=== PATIENT | male | born 1980 | race Caucasian/White ===

== ENCOUNTER 2017-06-20 13:07 | Emergency (ER) | payer MEDICAID ==
[2017-06-20 13:21] VITALS: RESP 18
--- NOTE | 2017-06-20 14:55 | EDPHY ---
H & P Stated Complaint: "bad cold", aches all over Time Seen by Provider: 06/20/17 14:55 HPI/ROS: CHIEF COMPLAINT: Fever, achiness, sore throat. HISTORY OF PRESENT ILLNESS: This patient is a pleasant 37 year old male complaining of fever, sore throat, and achy muscles onset yesterday. He went to work today, began to feel miserable and presents for evaluation. He is currently staying at a half-way. 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 He endorses a slight cough and feels congested (he has had a past nasal fracture and feels his nasal breathing is generally not good). He endorses nausea. Has had chest pain and shortness of breath when he has tried to stop using drugs in the past. This time, he is committing to discontinuing his IV drug use. He does not feel that his recent symptoms are related to drug withdrawal. He has not used any Tylenol, Motrin, or other over the counter remedies due to difficulty in obtaining these medications. He has not measured his temperature, but feels subjectively hot and has had chills. He denies vomiting, diarrhea, abdominal pain, urinary complaints, or other associated symptoms. REVIEW OF SYSTEMS: A ten point review of systems was performed and is negative with the exception of the items mentioned in the HPI. Past medical history: Alcoholism, IV drug use, polysubstance abuse. Past surgical history: Noncontributory Family history: Noncontributory Social history: Nonsmoker. Endorses alcohol use. Former IV drug use. Recently moved to [place] from [place], and is living at the homeless half-way. Works at the [employer]. General Appearance: Alert. Vital signs reviewed. Eyes: Pupils equal and round, no conjunctival injection, no discharge. Anicteric. ENT, Mouth: Mucous membranes are moist, mild oropharyngeal erythema, no edema. Neck: Mild anterior cervical lymphadenopathy, supple. Respiratory: Lungs are clear to auscultation; no wheezes, rales, or rhonchi. Cardiovascular: Regular rate and rhythm; no murmur, rub, or gallop. Gastrointestinal: Abdomen is soft and nontender, no masses or organomegaly, bowel sounds normal. Skin: Warm and dry, no rashes on exposed skin, normal color. Back: Nontender to palpation over the thoracolumbar spine. No CVAT. Extremities: No lower extremity edema, no calf tenderness or swelling. Neurological: Alert and oriented. Moving all four extremities easily and equally. Psychiatric: Normal affect. - Personal History Current Tetanus Diphtheria and Acellular Pertussis (TDAP): Unsure - Medical/Surgical History Hx Alcoholism: Yes Other PMH: IV drug abuse (clean x 2 wks). homeless - Social History Smoking Status: Former smoker Constitutional: Initial Vital Signs Temperature (C) 36.9 C 06/20/17 13:16 Heart Rate 82 06/20/17 13:16 Respiratory Rate 18 06/20/17 13:16 Blood Pressure 106/59 L 06/20/17 13:16 O2 Sat (%) 95 06/20/17 13:16 O2 Delivery Mode Room Air Allergies/Adverse Reactions: No Known Allergies Allergy (Unverified 06/20/17 13:21) Home Medications: Medication Instructions Recorded NK [No Known Home Meds] 06/20/17 Medical Decision Making ED Course/Re-evaluation: 37 year old male presents with subjective fever, achiness, congestion, and sore throat. Physical exam reveals mild pharyngeal erythema and scattered lymphadenopathy. Plan for flu swab. Plan to administer 1000mg PO Tylenol for relief of symptoms. We discussed resources for his continued rehabilitation from drug use. He will receive contact information for and [facility]. I also will give contact information for local HIV testing centers (at his request). Influenza test is negative. I think that he has a viral syndrome, with symptoms possibly exacerbated by opiate withdrawal. He is familiar with the symptoms of withdrawal. Reassessed patient and discussed these results. Plan to discharge home in good condition. He will follow up as discussed above. Return precautions discussed. He is comfortable with this plan. Differential Diagnosis: I considered a differential diagnosis including but not limited to opiate withdrawal, pneumonia, urinary tract infection, viral syndrome, and influenza. - Data Points Medications Given: Discontinued Medications Acetaminophen (Tylenol) 1,000 mg PO EDNOW ONE Stop: 06/20/17 15:09 Last Admin: 06/20/17 15:30 Dose: 1,000 mg Departure - Departure Disposition: Home, Routine, Self-Care Clinical Impression: Viral syndrome Condition: Good Instructions: Viral Syndrome (ED) Additional Instructions: 1. Follow up with a primary care provider for continued evaluation. We [facility] - they have walk-in appointments available, details below. We will also provide you with some resources for HIV testing below. 2. You may take 650mg Tylenol every 4-6 hours or 400mg Ibuprofen every 6-8 hours with food as needed for fever reduction and pain control. 3. Return to the emergency department for fever, chest pain, shortness of breath , uncontrollable vomiting, or other worsening of condition. The [facility] has walk-in appointments for the homeless at the following days/locations. No appointment is needed. Location and contact information can be found attached. Wednesday 8-10am @ [facility] 11AM-1PM @ [facility] Wednesday 8-10:30AM @ [facility] Wednesday 8-10 AM @ [facility] 2-4PM @ [facility] Wednesday 8-10AM @ [facility] ([facility]) partners with [facility] ( [facility]) to provide free, anonymous and confidential HIV testing and risk reduction counseling. Each session includes a rapid HIV test, information, and support to help you stay healthy. [facility] prioritizes reaching populations at highest risk of HIV transmission. [facility] recommends testing 3 months after your last potential exposure. [facility] [address] [place] [id number] Testing is also available at: [facility] [address] [place] [address] $38 sliding scale anonymous & confidential. Referrals: AA Hotline [Outside] - As per Instructions [facility],. [Clinic] - As per Instructions [facility] 24 Hours [Outside] - As per Instructions Stand Alone Forms: Work Excuse Report Scribed for: Lay Pope Report Scribed by: Liv Horner Date of Report: 06/20/17 Time of Report: 15:04 Physician Review and Approval Statement: 06/20/17 14:55 Portions of this note were transcribed by the medical support specialist. I, Dr. Lay Pope, personally performed the history, physical exam, and medical decision- making; and confirmed the accuracy of the information in the transcribed note.
[2017-06-20 15:08] VITALS: TEMP 99.3
[2017-06-20] MEDS ORDERED: ACETAMINOPHEN 500 MG TAB PO ONE (15:08)
[2017-06-20 17:36] VITALS: BP 112/74; PULSE 78; O2SAT 94
== END 2017-06-20 17:35 | disposition home or self-care (01) ==
DX: B34.9 Viral infection, unspecified (principal); Z87.891 Personal history of nicotine dependence